=== PATIENT | male | born 1960 | race Caucasian/White ===

== ENCOUNTER 2022-01-24 11:38 | Emergency (ER) | payer OTHER ==
[~2022-01-24] VITALS: Ht 180.3 cm; Wt 77.6 kg
[2022-01-24] MEDS ORDERED: CARV6.252 PO (11:46)
--- NOTE | 2022-01-24 11:50 | NUR ---
Recived pt 61 yrs male awake and alert came by pramdic c/o abdomine pain for 4 days 07/25 with nausea . ABDOMIN SOFT exmine Abi inserted ango catheter # [address] hand blood drow and sent to lab
[2022-01-24 12:02] LABS: BASOPHILS % (AUTO) 0.5 % (0.0-2.0); EOSINOPHILS % (AUTO) 0.3 % (0.0-6.0); HEMATOCRIT 44 % (39-51); HEMOGLOBIN 14.8 g/dL (13.5-17.5); LYMPHOCYTES # (AUTO) 0.8 K/uL (0.8-4.8); LYMPHOCYTES % (AUTO) 20.1 % (20.0-44.0); MEAN CORPUSCULAR HGB CONC 34 g/dl (31.0-36.0); MEAN CORPUSCULAR VOLUME 91 fL (80-96); MONOCYTES # (AUTO) 0.3 K/uL (0.1-1.30); MONOCYTES % (AUTO) 8.4 % (2.0-12.0); NEUTROPHILS # (AUTO) 2.8 K/uL (1.8-8.9); NEUTROPHILS % (AUTO) 70.7 % (43.0-81.0); PLATELET COUNT (AUTO) 101 K/uL (150-450); RED BLOOD CELL COUNT(AUTO) 4.83 MIL/uL (4.5-6.0)
[2022-01-24 12:30] LABS: BILIRUBIN,URINE NEGATIVE (NEGATIVE); COLOR,URINE YELLOW (YELLOW); LEUKOCYTE ESTERASE ,URINE MODERATE (NEGATIVE); NITRITE, URINE NEGATIVE (NEGATIVE); PH,URINE 6.5 (5.0-8.0); PROTEIN,URINE 30 mg/dl (NEGATIVE); UGLUCOSE NEGATIVE (NEGATIVE); UROBILINOGEN,URINE >=8.0 EU/dL (0.2)
--- NOTE | 2022-01-24 12:35 | NUR ---
voding freely yellow cloudy color ua sent to lab resting and sleepying
[2022-01-24 12:48] LABS: ALBUMIN 2.2 g/dL (3.4-5.0); BILIRUBIN,DIRECT 0.5 mg/dL (0.0-0.2); BILIRUBIN,TOTAL 1.1 mg/dL (0.2-1.0); CREATININE 1.1 mg/dL (0.6-1.3); POTASSIUM 3.8 mmol/L (3.5-5.1); TOTAL PROTEIN, SERUM 9.7 g/dL (6.4-8.2)
--- NOTE | 2022-01-24 13:00 | NUR ---
kelly for lab result
--- NOTE | 2022-01-24 13:14 | NUR ---
resting at this time no abdominal pain noted
--- NOTE | 2022-01-24 14:05 | NUR ---
d/cinstracton given to pt uncoopratve DR. Alex at bed spook about lab result and ct result pt refused to sign d/c instration d/c hl done
--- NOTE | 2022-01-24 14:10 | NUR ---
lesley po intack jice and walk out by securety
--- NOTE | 2022-01-24 14:11 | NUR ---
Patient discharged to home in stable condition. Written and verbal after care instructions given. Patient verbalizes understanding of instruction. Patient refused to sign discharge paperwork.
[2022-01-24 14:12] VITALS: BP 153/71
== END 2022-01-24 14:13 | disposition home or self-care (01) ==
LOC: ER 11:40
DX: K40.90 Unilateral inguinal hernia, without obstruction or gangrene, not specified as recurrent (principal); I11.0 Hypertensive heart disease with heart failure; I50.9 Heart failure, unspecified; Z88.5 Allergy status to narcotic agent; Z79.899 Other long term (current) drug therapy
CPT/HCPCS: 36415; 80048-TC; 80076-TC; 83690-TC; 85025-TC

== ENCOUNTER 2022-02-08 06:45 | Inpatient (IN) | payer OTHER ==
[~2022-02-08] VITALS: Ht 180.3 cm; Wt 71.9 kg
[~2022-02-08 06:45] MED LIST: CARV6.252 PO
[2022-02-08] MEDS ORDERED: CEFTRIAXONE 1 G VIAL IV ONE (06:47)
[2022-02-08] MEDS ORDERED: D5W IV ONE (06:47)
[2022-02-08] MEDS ORDERED: AZITHROMYCIN 500 MG VIAL IV ONE (06:47)
[2022-02-08] MEDS ORDERED: IV D5W 50 ML BAG IV ONE (06:47)
--- NOTE | 2022-02-08 06:51 | NUR ---
BIBRA 58 C/O CP X1 DAY. PATIENT ALERT AND ORIENTED X4. AMBULATORY WITH NON LABORED BREATHING IN BED 12 ON MONITOR AND POX. PT SEEN BY MD AT TRIAGE.
--- NOTE | 2022-02-08 06:52 | NUR ---
EMT @ BEDSIDE FOR EKG.
--- NOTE | 2022-02-08 06:52 | NUR ---
BLOOD COLLECTED AND SENT TO LAB
--- NOTE | 2022-02-08 06:52 | NUR ---
RN @ BEDSIDE FOR BLOOD DRAW
[2022-02-08 07:13] LABS: BASOPHILS % (AUTO) 0.4 % (0.0-2.0); EOSINOPHILS % (AUTO) 0.5 % (0.0-6.0); HEMATOCRIT 43 % (39-51); HEMOGLOBIN 14.6 g/dL (13.5-17.5); LYMPHOCYTES # (AUTO) 1.1 K/uL (0.8-4.8); LYMPHOCYTES % (AUTO) 29.4 % (20.0-44.0); MEAN CORPUSCULAR HGB CONC 34 g/dl (31.0-36.0); MEAN CORPUSCULAR VOLUME 93 fL (80-96); MONOCYTES # (AUTO) 0.3 K/uL (0.1-1.30); MONOCYTES % (AUTO) 8.5 % (2.0-12.0); NEUTROPHILS # (AUTO) 2.2 K/uL (1.8-8.9); NEUTROPHILS % (AUTO) 61.2 % (43.0-81.0); PLATELET COUNT (AUTO) 81 K/uL (150-450); RED BLOOD CELL COUNT(AUTO) 4.67 MIL/uL (4.5-6.0); WHITE BLOOD COUNT (AUTO) 3.6 K/uL (4.3-11.0)
[2022-02-08 07:19] LABS: CALCIUM, SERUM 9.1 mg/dL (8.5-10.1); CARBON DIOXIDE 27 mmol/L (21-32); CHLORIDE 102 mmol/L (98-107); CREATININE 1.3 mg/dL (0.6-1.3); GLUCOSE 79 mg/dL (74-106); POTASSIUM 4.1 mmol/L (3.5-5.1); SODIUM SERUM 132 mmol/L (136-145); UREA NITROGEN, BLOOD 18 mg/dL (7-18)
[2022-02-08 08:29] LABS: BAND % (MANUAL) 2 % (0.0-5.0); EOSINOPHILS % (MANUAL) 3 % (0-4); LYMPHOCYTES % (MANUAL) 28 % (16-48); MONOCYTES % (MANUAL) 5 % (0-11.0); NEUTROPHILS % (MANUAL) 62 (42-76)
[2022-02-08] MEDS ORDERED: CEFTRIAXONE 1GM BAG (ER ONLY) 50 ML IV ONE (09:00)
[2022-02-08] MEDS ORDERED: FUROSEMIDE 40 MG/4 ML VIAL IV ONE ×2 (09:00→21:00)
[2022-02-08] MEDS ORDERED: AZITHROMYCIN 500 MG in IV D5W 250 ML IV ONE (09:00)
[2022-02-08] MEDS ORDERED: ASPIRIN 81 MG TAB.CHEW PO ONE (09:00)
[2022-02-08] MEDS ORDERED: IOHEXOL-350 100 ML VIAL IV ONE ×2 (09:11→09:29)
[2022-02-08] MEDS ORDERED: IV NS 0.9% 250 ML IV ONE (09:12)
[2022-02-08] MEDS ORDERED: ASPI-1420 PO (09:19)
[2022-02-08] MEDS ORDERED: FURO40TA5 PO (09:19)
[2022-02-08] MEDS ORDERED: GABA-532 PO (09:19)
[2022-02-08] MEDS ORDERED: BICT1TAB PO (09:19)
[2022-02-08] MEDS ORDERED: ALBU8.5H8 IH (09:19)
--- NOTE | 2022-02-08 09:38 | NUR ---
PT BACK FROM CT
--- NOTE | 2022-02-08 10:28 | NUR ---
ALICIA DUMONT CALLED FOR CLINICAL INFORMATION. LOOKING AT POSSIBLE TRANSFER TO [facility]. WILL CALL BACK WITH TELE BED INFO ONCE PLACEMENT IF FOUND.
[2022-02-08] MEDS ORDERED: ASPIRIN 81 MG TAB.CHEW ONE ×2 (11:32→11:34)
[2022-02-08] MEDS ORDERED: FUROSEMIDE 40 MG/4 ML VIAL ONE (11:32)
--- NOTE | 2022-02-08 12:16 | NUR ---
PT SLEEPING IN BED, EASILY AROUSABLE
--- NOTE | 2022-02-08 14:18 | NUR ---
PT LAYING IN BED, NEEDS MET
--- NOTE | 2022-02-08 17:22 | NUR ---
PT EATING CARDIAC RESTRICTED DINNER
--- NOTE | 2022-02-08 18:02 | NUR ---
RECEIVED A CALL FROM ALICIA ZEPEDA FROM [facility]. EXPLANED SITUATION OF PROCESSING ADMISSION DUE TO NOT HAVING BED PUI BED AVAILABILITY AT [facility]. ALICIA ZEPEDA WILL SET UP PEER TO PEER TO ADMIT AT [facility] DUE TO [facility] DOES NOT REQUIRE PCR COVID TEST FOR ADMISSION.
[2022-02-08] MEDS ORDERED: ONDANSETRON HCL/PF 4 MG/2 ML VIAL ONE (18:09)
--- NOTE | 2022-02-08 18:26 | NUR ---
NURSING SUP GAVE 114-1.
[2022-02-08] MEDS ORDERED: ONDANSETRON HCL/PF - ER 4 MG/2 ML VIAL IV ONE (18:30)
--- NOTE | 2022-02-08 18:30 | NUR ---
RECEIVED A CALL FROM DR. TAN FOR PEER TO PEER. CONNECTED TO DR. TEAGUE FOR PEER TO PEER.
--- NOTE | 2022-02-08 18:40 | NUR ---
RECEIVED A CALL FROM ALICIA ZEPEDA. PT ACCEPTED TO [facility] UNDER DR. TAN. REQUESTS TO SEND CLINICALS AND FACESHEET TO [facility] FAX: [phone] ALICIA ZEPEDA PHONE NUMBER: [phone].
--- NOTE | 2022-02-08 18:52 | NUR ---
CLINICALS FAXED TO [facility].
--- NOTE | 2022-02-08 19:39 | NUR ---
Recieved call Verbal auth from Jordy Sexton
--- NOTE | 2022-02-08 19:46 | NUR ---
Bed 114-1 for admission
--- NOTE | 2022-02-08 20:38 | NUR ---
REPORT GIVEN TO KATHIA NATHAN, BED 115-2
--- NOTE | 2022-02-08 20:51 | NUR ---
PATIENT TRANSFERRED UNDER ACLS
[2022-02-08 21:00] VITALS: BP 147/103
[2022-02-08] MEDS ORDERED: ZOLPIDEM TARTRATE 5 MG TABLET PO PRN (21:00)
[2022-02-08] MEDS ORDERED: HYDROCODONE/APAP 10/325MG TABLET PO PRN (21:00)
[2022-02-08] MEDS ORDERED: Z GUARD REMEDY 4 OZ OINT TP PRN (21:00)
[2022-02-08] MEDS ORDERED: MAG HYDROX/AL HYDROX/SIMETH 30 ML UDC PO PRN (21:00)
[2022-02-08] MEDS ORDERED: ACETAMINOPHEN 325 MG TABLET PO PRN (21:00)
[2022-02-08] MEDS ORDERED: MAGNESIUM HYDROXIDE 30 ML UDC PO PRN (21:00)
[2022-02-08] MEDS ORDERED: ONDANSETRON HCL/PF 4 MG/2 ML VIAL IVP PRN (21:00)
[2022-02-08] MEDS ORDERED: CEFTRIAXONE 1 G VIAL ONE (21:24)
[2022-02-08] MEDS ORDERED: AZITHROMYCIN 500 MG VIAL ONE (21:25)
[2022-02-08] MEDS ORDERED: ALBUTEROL FS 2.5 MG/3 ML VIAL.NEB NEB PRN (21:30)
--- NOTE | 2022-02-08 21:30 | NUR ---
RN NOTE RECEIVED A 61 YEAR OLD MALE FROM ER. PATIENT IS ALERT AND ORIENTED X4. ABLE TO MAKE NEEDS KNOWN. BREATHING NOTED WITH MILD SHORTNESS OF BREATH. PATIENT PLACED ON 3L/MIN VIA NASAL CANNULA. TOLERATING WELL WITH OXYGEN SATURATION OF 95-100 PERCENT. EPISODES OF ANXIETY FROM SUB-STERNAL CHEST PAIN, NON-RADIATING. ALSO WITH MILD HEADACHE. PATIENT ON TELEMETRY MONITORING. SINUS TACHYCARDIA. SKIN WARM, NOTED WITH DIAPHORESES. NOTED WITH LEFT FOREARM PERIPHERAL IV 18G. PATENT. NO INFILTRATION. PROVIDED URINAL AT BEDSIDE. ALL NEEDS ATTENDED. BED LOW, IN LOCKED POSITION. REMINDED TO USE CALL LIGHT WHEN ASSISTANCE IS NEEDED. WILL CONTINUE TO MONITOR.
[2022-02-08] MEDS: CEFTRIAXONE 1 G in IV D5W 50 ML IV SCH (21:31)
[2022-02-08] MEDS: AZITHROMYCIN 500 MG in IV D5W 250 ML IV SCH (22:03)
[2022-02-08] MEDS: HYDROMORPHONE INJ 2 MG/ML DISP.SYRIN IV PRN (22:08)
[2022-02-09] VITALS: BP 140/100
--- NOTE | 2022-02-09 | NUR ---
RN NOTE PATIENT WAS COMPLAINING OF SUBSTERNAL CHEST PAIN, NON-RADIATING. ALSO COMPLAINING OF HEADACHE. RATES PAIN 8/10. PATIENT PREFERS TO SIT UP BY BEDSIDE AND LEAN ON BEDSIDE TABLE. ADMINISTERED DILAUDID 1 MG PER MD ORDER. PAIN WAS ALLEVIATED AND PATIENT WENT BACK TO SLEEP. ADMINISTERED ORDERED ANTIBIOTICS, NO ADVERSE REACTIONS. ALL NEEDS ATTENDED. WILL CONTINUE TO MONITOR.
[2022-02-09 04:00] VITALS: BP 148/105
--- NOTE | 2022-02-09 06:38 | NUR ---
RN NOTE PATIENT REFUSED TO HAVE BLOOD DRAWN. EXPLAINED TO PATIENT THE PURPOSE AND IMPORTANCE OF HAVING BLOOD DRAWN 3X. STILL REFUSED. CELL LINER WILL ATTEMPT AGAIN AT A LATER TIME.
--- NOTE | 2022-02-09 07:26 | NUR ---
RN OPENING NOTE PATIENT RECEIVED IN BED, AWAKE A&OX4. PATIENT ORDERED TO BE ON 3L O2 NC, PT HAS REMOVED NC AT THIS TIME AND IS NOT SHOWING SIGNS AND SYMPTOMS OF LABORED BREATHING, SATURATION 98%. LEFT FA 18G IN PLACE. REPORTED BY FLAMER SEALER TO HAVE REFUSED LAB DRAW EARLIER TODAY. NO SIGNS OF ACUTE DISTRESS NOTED AT THIS TIME. BED LOCKED AND IN LOWEST POSITION, CALL LIGHT WITHIN REACH, 3 SIDE RAILS UP. WILL CONTINUE TO MONITOR.
[2022-02-09 08:00] VITALS: BP 133/93
[2022-02-09] MEDS: GABAPENTIN 300 MG CAPSULE PO SCH ×2 (08:53→16:25)
[2022-02-09] MEDS: CARVEDILOL 6.25 MG TABLET PO SCH ×2 (08:53→20:19)
[2022-02-09] MEDS: FUROSEMIDE 100 MG/10 ML VIAL IV SCH ×3 (08:53→16:25)
[2022-02-09] MEDS: ASPIRIN EC 81 MG TABLET.DR PO SCH (08:53)
[2022-02-09] MEDS: hydrALAZINE HCL 50 MG TABLET PO SCH ×3 (08:53→16:26)
[2022-02-09] MEDS: NITROGLYCERIN 30 GM TUBE TP SCH ×2 (10:13→20:20)
[2022-02-09 10:40] LABS: BASOPHILS % (AUTO) 0.4 % (0.0-2.0); EOSINOPHILS % (AUTO) 0.8 % (0.0-6.0); HEMATOCRIT 41 % (39-51); HEMOGLOBIN 13.6 g/dL (13.5-17.5); LYMPHOCYTES # (AUTO) 0.6 K/uL (0.8-4.8); LYMPHOCYTES % (AUTO) 17.1 % (20.0-44.0); MEAN CORPUSCULAR HGB CONC 34 g/dl (31.0-36.0); MEAN CORPUSCULAR VOLUME 92 fL (80-96); MONOCYTES # (AUTO) 0.4 K/uL (0.1-1.30); MONOCYTES % (AUTO) 10.8 % (2.0-12.0); NEUTROPHILS # (AUTO) 2.4 K/uL (1.8-8.9); NEUTROPHILS % (AUTO) 70.9 % (43.0-81.0); PLATELET COUNT (AUTO) 69 K/uL (150-450); RED BLOOD CELL COUNT(AUTO) 4.42 MIL/uL (4.5-6.0); WHITE BLOOD COUNT (AUTO) 3.4 K/uL (4.3-11.0)
[2022-02-09 10:55] LABS: POTASSIUM 3.8 mmol/L (3.5-5.1)
[2022-02-09 11:17] LABS: CALCIUM, SERUM 8.5 mg/dL (8.5-10.1); CREATININE 1.3 mg/dL (0.6-1.3); PHOSPHORUS 3.2 mg/dL (2.5-4.9)
[2022-02-09 12:00] VITALS: BP 130/95
[2022-02-09 16:00] VITALS: BP 133/90
[2022-02-09] MEDS: HYDROMORPHONE INJ 2 MG/ML DISP.SYRIN IV PRN (18:20)
--- NOTE | 2022-02-09 18:24 | NUR ---
RN NOTE PATIENT REPORTING SOME SHORTNESS OF BREATH AND CHEST PAIN. PT PLACED BACK ON 3L O2 NC SATING AT 96%, HR [address] RICKS NOTIFIED, NO RESPONSE AT THIS TIME. DILAUDID IV GIVEN. WILL CONTINUE TO MONITOR.
--- NOTE | 2022-02-09 18:53 | NUR ---
RN CLOSING NOTE PATIENT REMAINS IN BED, RESTING, A&OX4. PATIENT ON 3L O2 NC WITH SOME LABORED BREATHING, SATING 96% AND 90 SINUS RHYTHM ON TELE MONITOR. RIGHT UA MIDLINE IN PLACE. PATIENT RESTING AT THIS TIME. BED LOCKED AND IN LOWEST POSITION, CALL LIGHT WITHIN REACH, 3 SIDE RAILS UP. ALL NEEDS ATTENDED DURING SHIFT. WILL ENDORSE TO TARGET DEVELOPER NURSE.
--- NOTE | 2022-02-09 19:30 | NUR ---
RN NOTE RECEIVED PATIENT IN BED, SLEEPING. AROUSABLE TO NAME AND TOUCH. ABLE TO MAKE NEEDS KNOWN. BREATHING EVEN AND UNLABORED. INCREASED DEPTH. SLIGHTLY TACHYPNEIC. ON 3L/MIN VIA NASAL CANNULA. PATIENT DENIES FEELING SHORTNESS OF BREATH. HOB ELEVATED 35 DEGREES. ON TELE MONITORING. SINUS RHYTYHM AT 86 BPM. DENIES CHEST PAIN AT THIS TIME. SKIN WARM AND SLIGHTLY MOIST ON FOREHEAD. PROVIDED WITH COOL TOWEL. NO FEVER. 98.2F. RIGHT UPPER ARM MIDLINE. INTACT. FLUSHED WITH 10 CC. NO LEAKING. DENIES PAIN AT SITE. BED LOW, IN LOCKED POSITION. ALL NEEDS ATTENDED. CALL LIGHT WITHIN REACH.
[2022-02-09 20:00] VITALS: BP 124/99
[2022-02-09] MEDS: CEFTRIAXONE 1 G in IV D5W 50 ML IV SCH (20:19)
[2022-02-09] MEDS: AZITHROMYCIN 500 MG in IV D5W 250 ML IV SCH (21:12)
[2022-02-10] VITALS: BP 129/90
[2022-02-10 04:00] VITALS: BP 117/81
--- NOTE | 2022-02-10 07:45 | NUR ---
RN OPENING NOTE PATIENT RECEIVED IN BED, AWAKE A&OX4. PATIENT ORDERED TO BE ON 3L O2 NC, PT HAS REMOVED NC AT THIS TIME AND IS NOT SHOWING SIGNS AND SYMPTOMS OF LABORED BREATHING, SATURATION 100%. RIGHT PICC LINE. REPORTED BY MIRROR PAINTER TO HAVE REFUSED LAB DRAW EARLIER TODAY. NO SIGNS OF ACUTE DISTRESS NOTED AT THIS TIME. BED LOCKED AND IN LOWEST POSITION, CALL LIGHT WITHIN REACH, 3 SIDE RAILS UP. WILL CONTINUE TO MONITOR.
[2022-02-10 08:00] VITALS: BP 132/87
[2022-02-10] MEDS: ASPIRIN EC 81 MG TABLET.DR PO SCH (09:25)
[2022-02-10] MEDS: GABAPENTIN 300 MG CAPSULE PO SCH ×2 (09:25→18:19)
[2022-02-10] MEDS: hydrALAZINE HCL 50 MG TABLET PO SCH ×3 (09:26→18:19)
[2022-02-10] MEDS: CARVEDILOL 6.25 MG TABLET PO SCH ×2 (09:27→20:58)
[2022-02-10] MEDS: NITROGLYCERIN 30 GM TUBE TP SCH ×2 (09:28→21:02)
[2022-02-10] MEDS: FUROSEMIDE 100 MG/10 ML VIAL IV SCH ×3 (09:33→18:18)
[2022-02-10] MEDS ORDERED: POTASSIUM CHLORIDE 20 MEQ TAB.PRT.SR PO SCH ×2 (10:00→14:00)
[2022-02-10 12:00] VITALS: BP 132/87
[2022-02-10 14:50] LABS: BASOPHILS % (AUTO) 0.3 % (0.0-2.0); EOSINOPHILS % (AUTO) 1.3 % (0.0-6.0); HEMATOCRIT 40 % (39-51); HEMOGLOBIN 13.3 g/dL (13.5-17.5); LYMPHOCYTES # (AUTO) 0.5 K/uL (0.8-4.8); LYMPHOCYTES % (AUTO) 16.8 % (20.0-44.0); MEAN CORPUSCULAR HGB CONC 33 g/dl (31.0-36.0); MEAN CORPUSCULAR VOLUME 92 fL (80-96); MONOCYTES # (AUTO) 0.3 K/uL (0.1-1.30); MONOCYTES % (AUTO) 10.7 % (2.0-12.0); NEUTROPHILS # (AUTO) 2.3 K/uL (1.8-8.9); NEUTROPHILS % (AUTO) 70.9 % (43.0-81.0); PLATELET COUNT (AUTO) 81 K/uL (150-450); RED BLOOD CELL COUNT(AUTO) 4.38 MIL/uL (4.5-6.0); WHITE BLOOD COUNT (AUTO) 3.2 K/uL (4.3-11.0)
[2022-02-10 15:14] LABS: BILIRUBIN,TOTAL 0.8 mg/dL (0.2-1.0); CALCIUM, SERUM 8.3 mg/dL (8.5-10.1); CREATININE 1.4 mg/dL (0.6-1.3); MAGNESIUM 1.9 mg/dL (1.8-2.4); PHOSPHORUS 3.7 mg/dL (2.5-4.9); POTASSIUM 4.4 mmol/L (3.5-5.1); TOTAL PROTEIN, SERUM 9.7 g/dL (6.4-8.2)
[2022-02-10 16:00] VITALS: BP 115/71
--- NOTE | 2022-02-10 17:30 | NUR ---
PATIENT PICC LINE CLOTHED AND IS NOT PATENT I ASKED HIM TO PUT A NEW IV BUT PATIENT REFUSED. EVEN I SCANNED FUROSEMIDE IV 80 ML, BUT DUE TO NOT HAVING IV ACCESS I HAD TO WAISTED WITH PRESENT OF CHARGE NURSE. PATIENT ASKED FOR PO FUROSEMIDE INSTEAD OF IV. PHARMACY AWARE.
--- NOTE | 2022-02-10 19:30 | NUR ---
RN NOTE RECEIVED PATIENT IN BED, SLEEPING, AROUSABLE. AOX4. BREATHING EVEN AND UNLABORED. NO SOB. ON 2L/MIN VIA NASAL CANNULA. ON AND OFF. PATIENT REMOVES. THEN REAPPLIES BY SELF. SATURATION OF 95- 100 PERCENT. HOB FLAT PER PT PREFERENCE. ON TELE MONITORING. SR AT THIS TIME. DENIES CHEST PAIN. NITRO GLYCERIN PATCH ON LEFT DELTOID. SKIN WARM AND DRY. RIGHT UPPER ARM MIDLINE FLUSHING WITH NO LEAKING. NEEDS TO BE FLUSHED VERY SLOWLY. URINAL AT BED SIDE. CONTAINS YELLOW URINE. NO HEMATURIA. ALL NEEDS ATTENDED. BED LOW IN LOCKED POSITION, CALL LIGHT WITHIN REACH.
[2022-02-10 20:00] VITALS: BP 115/84
[2022-02-10] MEDS ORDERED: FUROSEMIDE 40 MG TABLET PO SCH (20:00)
--- NOTE | 2022-02-10 20:49 | NUR ---
RN CLOSING NOTE PATIENT REMAINS IN BED, RESTING, A&OX4. PATIENT ON 3L O2 NC WITH SOME LABORED BREATHING, SATING 100% AND 90 SINUS RHYTHM ON TELE MONITOR. RIGHT UA MIDLINE CLOTTED. PATIENT RESTING AT THIS TIME. BED LOCKED AND IN LOWEST POSITION, CALL LIGHT WITHIN REACH, 3 SIDE RAILS UP. ALL NEEDS ATTENDED DURING SHIFT. WILL ENDORSE TO DEPUTY CHIEF EXECUTIVE NURSE.
[2022-02-10] MEDS: AZITHROMYCIN 250 MG TABLET PO SCH (21:00)
[2022-02-11] VITALS: BP 135/80
[2022-02-11 04:00] VITALS: BP 139/88
--- NOTE | 2022-02-11 06:31 | NUR ---
RN NOTE NO SIGNIFICANT CHANGES. NO COMPLAINTS OF CHEST PAIN DURING SHIFT. PATIENT WAS ON/OFF NASAL CANNULA 2L/MIN. IT WAS PER PATIENT PREFERENCE. DENIES FEELINGS OF SHORTNESS OF BREATH. PATIENT TOLERATED PO MEDICATIONS. URINAL WAS AT BEDSIDE AND WAS CLOSELY MONITORED FOR ACCURATE INTAKE AND OUTPUT. STRICT I/O MAINTAINED. PATIENT REFUSED TO HAVE AM LABS DRAWN. SERVICE ATTENDANT CAFETERIA WILL ATTEMPT AT A LATER TIME. ATTEMPTED TO DRAW FROM MIDLINE, NOTED WITH RESISTANCE BUT ABLE TO FLUSH. PATIENT REFUSED WHEN ASKED BY ME TO BE POKED WITH NEEDLE. EDUCATED PATIENTS 3X ON THE PURPOSE, AND PATIENT STATES NOT RIGHT NOW. TO PREVENT AGITATION, SERVICE ATTENDANT CAFETERIA AND I AGREED TO ATTEMPT AGAIN AT LATER TIME.
--- NOTE | 2022-02-11 07:56 | NUR ---
RN OPENING NOTE PATIENT RECEIVED IN BED, AO X 4, ABLE TO RESPONDS ALL STIMULI. IN NO ACUTE DISTRESS NOTED. RESPIRATORY EVEN AND UNLABORED ON OXYGEN AT 2Ls VIA NC. SKIN IS WARM TO TOUCH, KEEP CLEAN/DRY, INTACT IV SITE. KEPT ELEVATED HOB FOR ENSURE AIRWAY AND ASPIRATION PRECAUTION, ALSO LOWEST POSITION OF THE BED, S/R UP X 3, ALL SAFETY PRECAUTION APPLIED. CALL LIGHT WITHIN REACH, WILL CONTINUE TO MONITOR.
[2022-02-11 08:00] VITALS: BP 131/90
[2022-02-11 09:07] LABS: *% CD 4 POS. LYMPH 18.8 % (30.8-58.5); *% CD 8 POS. LYMPH 71.1 % (12.0-35.5); *CD4/CD8 RATIO 0.26 (0.92-3.72)
[2022-02-11] MEDS: AZITHROMYCIN 250 MG TABLET PO SCH (09:36)
[2022-02-11] MEDS: GABAPENTIN 300 MG CAPSULE PO SCH ×2 (09:36→17:38)
[2022-02-11] MEDS: ASPIRIN EC 81 MG TABLET.DR PO SCH (09:36)
[2022-02-11] MEDS: hydrALAZINE HCL 50 MG TABLET PO SCH ×3 (09:37→17:38)
[2022-02-11] MEDS: NITROGLYCERIN 30 GM TUBE TP SCH (09:40)
[2022-02-11] MEDS: CARVEDILOL 6.25 MG TABLET PO SCH (09:41)
[2022-02-11 11:07] LABS: *ABSOLUTE CD 4 HELPER 150 /uL (359-1519); *ABSOLUTE CD 8 SUPPRESSOR 569 /uL (109-897); *BASOS 1 % (Not Estab.); *COMMENTS Note: (.); *EOS 1 % (Not Estab.); *HCT 41.7 % (37.5-51.0); *HGB 13.6 g/dL (13.0-17.7); *IMMATURE GRANULOCYTES 0 % (Not Estab.); *LYMPHOCYTES 20 % (Not Estab.); *LYMPHS, ABSOLUTE 0.8 x10E3/uL (0.7-3.1); *MCHC 32.6 g/dL (31.5-35.7); *MCV 92 fL (79-97); *MONOCYTES 10 % (Not Estab.); *MONOS, ABSOLUTE 0.4 x10E3/uL (0.1-0.9); *NEUTROPHILS 68 % (Not Estab.); *NEUTROPHILS, ABSOLUTE 2.6 x10E3/uL (1.4-7.0); *PLT 86 x10E3/uL (150-450); *RBC 4.53 x10E6/uL (4.14-5.80); *RDW 14.6 % (11.6-15.4)
[2022-02-11 12:00] VITALS: BP 111/72
[2022-02-11 13:07] LABS: *SPE A/G RATIO 0.4 (0.7-1.7); *SPE ALPHA-1-GLOBULIN 0.3 g/dL (0.0-0.4); *SPE ALPHA-2-GLOBULIN 0.7 g/dL (0.4-1.0); *SPE BETA GLOBULIN 1.1 g/dL (0.7-1.3); *SPE M-SPIKE Not Observed g/dL (Not Observed)
--- NOTE | 2022-02-11 15:43 | NUR ---
PATIENT HAS BLOOD ORDER:CBC, CMP, MG, PHOS, LIVER FUNCTION, AND TROPONIN FOR CHEST PAIN BUT REFUSED. INFORMED PRIMARY MD.
[2022-02-11 16:00] VITALS: BP 126/95
[2022-02-11 17:38] VITALS: BP 126/95
--- NOTE | 2022-02-11 19:27 | NUR ---
RN CLOSE NOTE PATIENT IN BED, IN NO ACUTE DISTRESS OBSERVED. RESPIRATION EVEN AND UNLABORED ON OXYGEN AT 2Ls. SKIN IS WARM TO TOUCH KEEP CLEAN//DRY, INTACT IV SITE. KEPT ELEVATED HOB FOR ENSURE AIRWAY AND ASPIRATION PRECAUTION. ALSO LOWEST POSITION OF THE BED FOR SAFETY. CALL LIGHT WITHIN REACH, WILL ENDORSE TO IRRIGATIONIST DESIGNER.
--- NOTE | 2022-02-11 21:15 | NUR ---
ACCESS DATABASE DEVELOPER NOTES RECEIVED PATIENT LAYING AWAKE IN BED. A/O X4. AT 1945 PATIENT WANTED TO GO SMOKE TOLD OF RISKS. CHARGE NURSE MADE AWARE. PATIENT WENT OUTSIDE AGAINST ADVICE. I WENT OUTSIDE TO WATCH HIM. SECURITY CAME TO MONITOR PATIENT. PATIENT CAME BACK ON TO THE UNIT. AT 2099 PATIENT REFUSED TO GIVE CUT AND COVER LINE WORKER TO STAFF. NURSING PORTER BAGGAGE MADE AWARE. NURSING PORTER BAGGAGE CAME TO TALK TO PATIENT AND PATIENT THREW CUT AND COVER LINE WORKER TOWARDS SECURITY. PATIENT EDUCATED ABOUT POSSIBLE OPTIONS. PATIENT LEFT AMA AND REFUSED TO SIGN AMA PAPER. HOSPITALIST, CHARGE NURSE, AND NURSING PORTER BAGGAGE MADE AWARE.
== END 2022-02-12 00:23 | disposition left against medical advice (07) | DRG 194 ==
LOC: ER 06:46 → TELE1 19:48
PROVIDERS: ADMIT Nurse Practitioner Acute Care; ATTEND Student in an Organized Health Care Education/Training Program
PROC: 05H533Z Insertion of Infusion Device into Right Subclavian Vein, Percutaneous Approach (ICD-10-PCS; principal; 2022-02-09)
PROC: B546ZZA Ultrasonography of Right Subclavian Vein, Guidance (ICD-10-PCS; 2022-02-09)
DX: I11.0 Hypertensive heart disease with heart failure (principal); J96.20 Acute and chronic respiratory failure, unspecified whether with hypoxia or hypercapnia; N17.0 Acute kidney failure with tubular necrosis; D69.6 Thrombocytopenia, unspecified; J15.9 Unspecified bacterial pneumonia; E44.0 Moderate protein-calorie malnutrition; J90 Pleural effusion, not elsewhere classified; E88.09 Other disorders of plasma-protein metabolism, not elsewhere classified; I50.23 Acute on chronic systolic (congestive) heart failure; F17.210 Nicotine dependence, cigarettes, uncomplicated; D64.9 Anemia, unspecified; R07.89 Other chest pain; R74.01 Elevation of levels of liver transaminase levels; Z68.22 Body mass index [BMI] 22.0-22.9, adult; Z20.822 Contact with and (suspected) exposure to COVID-19; Z79.899 Other long term (current) drug therapy
CPT/HCPCS: 36410; 36415; 71045-TC; 80048-TC; 80053-TC; 80061-TC; 83735-TC; 83880; 84100-TC; 84155; 84165; 84484-TC; 85025-TC; 86360; 87040-TC; 87081-TC; 93307-TC; C9803; G0378; J0456; J0696; J1170; J1940; J2405; J7050; J7060; Q9967